=== PATIENT | female | born 1940 | race African-American/Black ===

== ENCOUNTER 2016-07-18 11:51 | Emergency (ER) | payer MEDICARE ==
[2016-07-18 12:31] VITALS: BP 154/79
[2016-07-18] MEDS ORDERED: ACETAMINOPHEN 325 MG TABLET ONE (12:56)
[2016-07-18] MEDS: ACETAMINOPHEN 325 MG TABLET PO ONE (13:02)
--- NOTE | 2016-07-18 13:17 | ERNOTE ---
Medical Problem HPI - Narrative Date of Service: 07/18/16 - General Chief Complaint: Flu Symptoms Time Seen by Provider: 07/18/16 12:40 Source: patient, RN notes reviewed Exam Limitations: no limitations - Immun/Allergies/Home Medications Immunizations: IMMUNIZATION HX Immunizations Up to Date No History of Influenza Vaccine No Hx Pneumococcal Vaccination No Allergies/Adverse Reactions: Allergies No Known Allergies Allergy (Verified 07/18/16 12:31) Home Medications: HOME MEDICATIONS Lisinopril [Zestril] 20 mg PO DAILY 07/18/16 [Last Taken Unknown] Metformin HCl [Glumetza] 500 mg PO BID 07/18/16 [Last Taken Unknown] Oseltamivir Phosphate [Tamiflu] 75 mg PO DAILY #10 cap 07/18/16 [Last Taken Unknown] Promethazine HCl/Codeine [Prometh-Codein 6.25-10 mg/5 ml] 5 ml PO Q4H PRN #120 ml 07/18/16 [Last Taken Unknown] Simvastatin 20 mg PO DAILY 07/18/16 [Last Taken Unknown] Vitamin D3/Vitamin K2 [D3 + K2 Dots 1,000 Units Tab] 2,000 PO BID 07/18/16 [ Last Taken Unknown] - History of Present History Narrative: 75 y/o female ambulatory to the ED for a cough and chills that began 2 days ago. She reports fatigue, malaise, poor appetite and a headache. She denies sick contacts. She is diabetic but reports her blood sugars have not been elevated. Date (Duration): 07/16/16 Review of Systems - Review of Systems Constitutional: Present: fever, chills, fatigue, malaise EYE: Present: no symptoms reported ENT: Present: nasal drainage. Absent: ear pain, nose congestion, sore throat Respiratory: Present: cough. Absent: shortness of breath, orthopnea, wheezing Cardiology: Absent: chest pain, syncope Gastrointestinal/Abdominal: Absent: nausea, abdominal pain Genitourinary: Present: no symptoms reported Musculoskeletal: Absent: muscle pain, joint pain Skin: Absent: rash, lesions Neurological: Present: headache. Absent: dizziness/light-headedness Endocrine: Present: no symptoms reported Hematologic/Lymphatic: Present: no symptoms reported Psych: Present: no symptoms reported - Patient's Past Medical History Patient History - Medical: Diabetes Type 2 Patient History - Cardiac/Respiratory: Hypertension Patient History - Cancer: No Hx of Cancer Patient History - Surgical Procedures: Tubal Ligation, T & A, Other Patient History - Other: None - Social History Living Situations: spouse Smoking Status: Former smoker Have you smoked in the past 12 months: No Alcohol Use: none Drug Use: none - Immunizations Immunizations Up to Date: No Hx Pneumococcal Vaccination: No History of Influenza Vaccine: No Physical Exam - Physical Exam General Appearance: Present: wd/wn, alert, no apparent distress Eye Exam: Normal inspection: bilateral Ears, Nose, Throat: Present: normal ENT inspection, hearing grossly normal, normal pharynx. Absent: abnormal TM (R), abnormal TM (L), nasal congestion, sinus pain/drainage Neck: Present: normal inspection, nontender, supple Respiratory: Present: no respiratory distress, normal breath sounds, no accessory muscle use, lungs clear Cardiovascular/Chest: Present: regular rate, rhythm, no murmur, normal peripheral pulses Neurological Exam: Present: alert, oriented, normal mood/affect, no motor/ sensory deficits Skin Exam: Present: normal color, warm/dry ED Progress - Results and Orders Patient's Lab Results:: I have reviewed the patient's lab results. - Vital Signs Patient's Vital Signs:: I have reviewed the patient's vital signs. Vital Signs: Vital Signs 07/18/16 12:23 Temperature 37.9 C H Pulse Rate 102 H Respiratory 18 Rate Blood Pressure 154/79 O2 Sat by Pulse 95 Oximetry - Progress/Reassessment Chief Complaint: Flu Symptoms Progress:: Improved Departure - Departure Clinical Impression: Influenza A Disposition: Home self-care Condition: Good Instructions: Influenza, Adult, [id number] Referrals: Inna Saldivar MD [Primary Care Provider] - Prescriptions: Oseltamivir Phosphate [Tamiflu] 75 mg PO DAILY #10 cap Promethazine HCl/Codeine [Prometh-Codein 6.25-10 mg/5 ml] 5 ml PO Q4H PRN #120 ml PRN Reason: Cough
== END 2016-07-18 13:39 | disposition home or self-care (01) ==
LOC: ER 11:51
DX: J09.X2 Influenza due to identified novel influenza A virus with other respiratory manifestations (principal); Z87.891 Personal history of nicotine dependence; E11.9 Type 2 diabetes mellitus without complications